=== PATIENT | female | born 1980 | race Two or more races ===

== ENCOUNTER 2023-02-20 15:04 | Emergency (ER) | payer OTHER ==
[~2023-02-20] VITALS: Ht 157.5 cm; Wt 72.7 kg
[2023-02-20 15:05] VITALS: TEMP 98.5
[2023-02-20] MEDS ORDERED: LIDOCAINE/PF 1% 5 ML VIAL ONE (15:41)
[2023-02-20] MEDS ORDERED: TraMADol HCL 50 MG TABLET PO ONE (15:45)
[2023-02-20 16:15] VITALS: BP 134/81; PULSE 81; RESP 17
[2023-02-20] MEDS ORDERED: PERTUSS(ACELL),DIPH,TET VAC/PF 0.5 ML SYRINGE IM. ONE (16:15)
[2023-02-20] MEDS ORDERED: TRAM-559 PO (16:27)
== END 2023-02-20 16:53 | disposition home or self-care (01) ==
LOC: EMS 15:08
DX: S61.217A Laceration without foreign body of left little finger without damage to nail, initial encounter (principal); X58.XXXA Exposure to other specified factors, initial encounter; Y93.89 Activity, other specified; Y92.89 Other specified places as the place of occurrence of the external cause; Y99.8 Other external cause status
CPT/HCPCS: 99283; 90715; 90471; 12001; J2001

== ENCOUNTER 2023-03-06 16:49 | Emergency (ER) | payer OTHER ==
[~2023-03-06] VITALS: Ht 61 cm; Wt 72.7 kg
[~2023-03-06 16:49] MED LIST: TRAM-559 PO
[2023-03-06 16:50] VITALS: BP 158/91; PULSE 100; RESP 16; TEMP 98.2
== END 2023-03-07 03:13 | disposition home or self-care (01) ==
LOC: EMS 16:49
DX: Z48.00 Encounter for change or removal of nonsurgical wound dressing (principal); Z79.899 Other long term (current) drug therapy
CPT/HCPCS: 99281; Z7502